=== PATIENT | female | born 1970 | race Hispanic/Latino ===

== ENCOUNTER 2020-01-11 14:35 | Outpatient (CLI) | payer OTHER ==
--- NOTE | 2020-01-11 15:09 | RAD ---
3 views of the left wrist: 01/11/2020 COMPARISON: None HISTORY: Wrist pain for 2 weeks FINDINGS: No fracture or dislocation. No radiopaque foreign body or subcutaneous gas. No widening of the scapholunate interval. If symptoms persist, follow-up in 7-10 days or left wrist MRI may be beneficial. IMPRESSION: No acute findings.
== END 2020-01-11 14:36 | disposition home or self-care (01) ==
LOC: BICRAD 14:35
PROVIDERS: ATTEND Physician Assistant
DX: M25.532 Pain in left wrist (principal)

== ENCOUNTER 2021-03-12 10:32 | Outpatient (CLI) | payer OTHER | END 2021-03-12 10:33 | disposition home or self-care (01) | LOC: BICMAMMO 10:32 | PROVIDERS: ATTEND Student in an Organized Health Care Education/Training Program | DX: Z12.31 Encounter for screening mammogram for malignant neoplasm of breast (principal); Z80.3 Family history of malignant neoplasm of breast; Z91.89 Other specified personal risk factors, not elsewhere classified | CPT/HCPCS: 77063; 77067 ==